=== PATIENT | female | born 1945 | race Caucasian/White ===

== ENCOUNTER 2022-09-15 11:03 | Day surgery (SDC) | payer OTHER, MEDICAID, SELFPAY ==
[2022-09-15] VITALS (16 sets, daily range): BP systolic 134–168; BP diastolic 65–93; PULSE 43–84; RESP 16–18; TEMP 36.4–36.9; O2SAT 93–99; BMI 23.4
--- NOTE | 2022-09-15 11:05 | IR_ITS ---
APPROVED REPORT Patient Location: Outpatient Machine Shop Instructor: MIRYAM Wesley RT (R) PROCEDURES Right heart catheterization Left heart catheterization Left ventriculogram Selective coronary angiogram Drug-eluting stent deployment to the ostial proximal left main artery Drug-eluting stent deployment to the ostial proximal dominant right coronary INDICATION High risk abnormal Myoview, Angina pectoris, Coronary artery disease, Cardiomyopathy, Pulmonary hypertension Informed consent was obtained prior to the procedure. COMPLICATIONS None Estimated Blood Loss: Less than 10 ML TECHNIQUE One percent lidocaine was used to anesthetize the right anterior aspect of the right wrist. The right radial artery was accessed via the Seldinger technique and a 6 Arabic hydrophilic sheath was placed in the right radial artery. Following this one percent lidocaine was used to anesthetize the right anterior aspect of the right neck. The right internal jugular vein was accessed via the Seldinger technique and a 7 Arabic sheath was placed in the right internal jugular vein. Following this an arterial cocktail was administered using 5000U heparin, 2.5 mg verapamil, 1mg Lidocaine and 800mcg nitroglycerin into the right radial sheath. A papa catheter was used to perform left heart catheterization left ventriculogram and selective coronary angiography while a [place]-Dasia catheter was used to perform right heart catheterization. Therapeutic heparin was administered at the end of the diagnostic cardiac procedure giving a therapeutic ACT. A Choice PT extra-support wire was placed distally in the circumflex artery and a 4 mm x 8 mm [place] frontier stent was deployed at 24 mey reducing the severe left main stenosis to 0%. An additional 5 mm x 8 mm noncompliant balloon was deployed at 20 mey in the ostial proximal segment of the left main artery stent further post dilating and reducing the stenosis. Excellent angiographic results were obtained with wide patency of the left main stent at the end of the procedure. Following this the guide catheter and apparatus was removed from the left coronary artery and placed into the right coronary artery followed by Choice PT extra-support wire. A 4 mm x 22 mm [place] frontier stent was deployed at 22 mey reducing the severe stenosis to 0%. VERONIQUE-3 flow was present down the left main artery and dominant right coronary before and after the procedure. At the end of the procedure the arterial sheath was removed good hemostasis was achieved using Traclet band. Patient was transferred to the postop holding area in stable condition for venous sheath removal. ANGIOGRAPHIC RESULTS The left main artery Is an ostial proximal 50% stenosis The left anterior descending artery Has proximal and mid vessel diffuse 20 to 30% stenosis. A small to moderate first diagonal artery has an ostial concentric 70 to 80% stenosis The circumflex artery Is a nondominant yet still large vessel and has proximal and mid vessel 30% stenoses The right coronary artery Is a large dominant vessel and has a proximal eccentric 80% stenosis The GUSMAN ventriculogram reveals Dilated ventricle ejection fraction 35 to 40% The left ventricular end-diastolic pressure 18 mmHg Right atrial pressure 14 mmHg Pulmonary artery pressure 42/22 mmHg Pulmonary occlusion pressure 18 mmHg Hemoglobin 15.6 Right atrial and pulmonary saturation 78% Aortic saturation 98% Cardiac output 5.2 Cardiac index 3.1 IMPRESSION Severe coronary disease as described above Successful stenting of the ostial proximal left main artery severe disease reduced to 0% with 1 drug-eluting stent Successful stenting of the proximal dominant right coronary severe disease due to 0% with 1 drug-eluting stent Cardiomyopathy as described above Moder
[2022-09-15 11:29] LABS: Basophils # 0.1 K/mm3 (0-0.2); Basophils % 0.7 % (0.1-2.0); Eosinophils # 0.1 K/mm3 (0.0-0.4); Eosinophils % 1.7 % (0.1-12.0); Hematocrit 48.4 % (37.0-47.0); Hemoglobin 15.6 g/dL (12.2-16.2); Lymphocytes # 2.2 K/mm3 (0.7-4.5); Lymphocytes % 33.4 % (10-50); Mean Corpuscular HGB Conc 32.2 g/dL (31.8-35.4); Mean Corpuscular Hemoglobin 29.7 pg (27.0-31.2); Mean Corpuscular Volume 92.4 fl (81-99); Mean Platelet Volume 9.2 fl (7.4-10.4); Monocytes # 0.3 K/mm3 (0.1-1.0); Monocytes % 4.9 % (1.7-9.3); Neutrophils # 3.9 K/mm3 (1.8-7.8); Neutrophils % 59.4 % (37.0-80.0); Platelet Count 217 K/mm3 (142-424); Red Blood Count 5.24 M/mm3 (4.20-5.40); Red Cell Distribution Width 13.3 % (11.5-17.5); White Blood Count 6.6 K/mm3 (4.8-10.8)
[2022-09-15 11:38] LABS: Anion Gap 14.4 mEq/L (5-15); Blood Urea Nitrogen 24 mg/dl (7-17); Carbon Dioxide 28 mmol/L (22.0-30.0); Chloride 103 mmol/L (98-107); Estimated Glomerular Filt Rate 61 ml/min (>60); GFR (African American) 74 ML/MIN (>60); Glucose 114 mg/dl (74-100); Potassium 4.4 mmoL/L (3.5-5.1); Sodium 141 mmol/L (136-145)
[2022-09-15 13:42] LABS: CATHL Arterial O2 SAT 78.7 % (90-100); CATHL Venous O2 SAT 78.6 % (75-80)
[2022-09-15 13:43] LABS: CATHL Activated Clotting Time 296 SEC (74-125)
--- NOTE | 2022-09-15 15:24 | PC.NURSE ---
accidentally charted on wrong pt
--- NOTE | 2022-09-15 15:50 | PC.NURSE ---
PT A&OX4, TOLERATING RA WELL. HAS BEEN RESTING IN BED SINCE ARRIVAL TO FLOOR. CHILDREN AT BEDSIDE. CATH SITES TO R NECK AND R WRIST. NO C/O THUS FAR. WILL GO OVER POST CATH D/C INSTRUCTIONS WITH PT AND FAMILY. VSS.
--- NOTE | 2022-09-16 13:13 | HMH.PHACL ---
PHA Underwater Photographer Discharge Med Public Relations Account Executive: Romy Blackwood DISCHARGED OVERNIGHT on the following medications: -ATORVASTATIN -ASPIRIN -CLOPIDOGREL -BISOPROLOL -LOSARTAN/HCTZ
== END 2022-09-15 20:05 | disposition home or self-care (01) ==
LOC: CATHLAB 13:39 → 2ND 14:00
PROVIDERS: Physician Assistant; PCP Nurse Practitioner Family; Visit Provider Internal Medicine
DX: I25.119 Atherosclerotic heart disease of native coronary artery with unspecified angina pectoris (principal); R42 Dizziness and giddiness; I48.91 Unspecified atrial fibrillation; I42.9 Cardiomyopathy, unspecified; I27.20 Pulmonary hypertension, unspecified
CPT/HCPCS: 36415; 80048; 82810; 85025; 85347; 92928; 93460; 93461; 99152; 99153; C1725; C1769; C1876; C1894; C9600; J1644; Q9967

== ENCOUNTER → 2022-12-15 09:10 | Outpatient (CLI) | payer OTHER, MEDICAID, SELFPAY ==
--- NOTE | 2022-12-15 09:13 | CA_ITS ---
APPROVED REPORT EXAM: Comprehensive 2D, Doppler, and color-flow Echocardiogram Fire Extinguisher Tester: Salud Palomo, RT(R) Ht: 5 ft 5 in Wt: 143lbs BSA: 1.72 BP: 147/79 mmHg Indications: Ordered as a limited for EF check, EF 35-40% on heart cath 09/15/22, dyspnea, CAD, AFIB, CM, PHTN. limited dopplers done to interrogate valves in light of no echo performed at this facility. 2D Dimensions LVEF (Townsend's) 37.70 % F: 54 - 74 LV Volume 99.40 mL F: 46 - 106 LV Volume Index 57.79 mL/m2 F: 29 - 61 LA Volume 78.60 mL LA Volume Index 45.70 mL/m2 (M/F) 16-34 M-Mode Dimensions RVDd 3.22 cm (0.9-2.6) LVDd 4.93 cm (3.5-5.7) LVDs 4.00 cm (3.5-5.7) IVSd 0.82 cm (0.6-1.1) PWd 0.79 cm (0.6-1.1) EF (Teich) 38.80% FS 18.90% EDV (Teich) 114.40 mL ESV (Teich) 70.00 mL LV Diastology E Decel Time 150.00 (160-240 msec) E/A Ratio 3.0 MED E' 5.90 (< 7 cm/sec) E'/MED E' Ratio 19.63 (>14) LAT E' 10.00 (<10 cm/sec) E/LAT E' Ratio 11.58 (>14) Mitral Valve MV E Max Live. 116.00 (40-130 cm/s) MV A Velocity 39.00 (40-130 cm/s) E/A Ratio 2.94 MV Decel. Time 150.00 (160-240 ms) MV PHT 44.00 ms Left Ventricle The left ventricle is normal size. Left ventricular systolic function is moderately decreased. There is increased LV wall thickness. There is severe hypokinesis of the inferior, inferoseptal, and inferolateral LV martinez. Grade 2 diastolic dysfunction is present. LVEF is 30-35%. Right Ventricle The right ventricle is normal size. Atria The left atrium is severely dilated. The right atrium is severely dilated. There is no Doppler evidence of interatrial shunt. Aortic Valve The aortic valve is mildly thickened. There is no aortic valvular stenosis. Trace aortic regurgitation. Mitral Valve Mild mitral annular calcification. The mitral valve leaflets appear mildly thickened and calcified. The posterior leaflet appears tethered with restricted motion. No evidence of mitral valve stenosis. Moderate mitral regurgitation. 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 Moderate to severe tricuspid regurgitation. RVSP is not evaluated in this study. Color Doppler demonstrates possible evidence of hepatic vein systolic flow reversal. Pulmonic Valve The pulmonic valve is not well visualized. Great Vessels The aortic root is normal in size. The ascending aorta is not well visualized. The IVC is normal size, but collapses < 50% with respirophasic variation. Pericardium There is no pericardial effusion. Other Information Study Quality: Fair Conclusion Moderate reduction in LV systolic function (LVEF 30-35%) Moderate MR (likely due to tethering of the posterior leaflet) Moderate to severe TR Due to moderate reduction of LVEF and mitral and tricuspid regurgitation, further evaluation for LV function and viability with cardiac MRI (cardiomyopathy protocol). Electronically signed by : Noemi Littlejohn MD 12/20/2022 09:11:03
== END ==
PROVIDERS: PCP Nurse Practitioner Family; Visit Provider Nurse Practitioner Family
DX: I27.20 Pulmonary hypertension, unspecified; E78.5 Hyperlipidemia, unspecified; R06.09 Other forms of dyspnea; R94.31 Abnormal electrocardiogram [ECG] [EKG]; I25.10 Atherosclerotic heart disease of native coronary artery without angina pectoris; I48.19 Other persistent atrial fibrillation; I42.8 Other cardiomyopathies
CPT/HCPCS: 93308

== ENCOUNTER 2023-04-18 09:11 | Outpatient (CLI) | payer OTHER, SELFPAY ==
[2023-04-18 09:50] LABS: Basophils # 0.1 K/mm3 (0-0.2); Basophils % 0.7 % (0.1-2.0); Eosinophils # 0.1 K/mm3 (0.0-0.4); Hematocrit 47.4 % (37.0-47.0); Hemoglobin 15.9 g/dL (12.2-16.2); Lymphocytes # 2.4 K/mm3 (0.7-4.5); Lymphocytes % 33.5 % (10-50); Mean Corpuscular HGB Conc 33.6 g/dL (31.8-35.4); Mean Corpuscular Hemoglobin 31.6 pg (27.0-31.2); Mean Corpuscular Volume 93.9 fl (81-99); Monocytes # 0.4 K/mm3 (0.1-1.0); Monocytes % 5.5 % (1.7-9.3); Neutrophils # 4.2 K/mm3 (1.8-7.8); Neutrophils % 59.3 % (37.0-80.0); Platelet Count 210 K/mm3 (142-424); Red Blood Count 5.04 M/mm3 (4.20-5.40); Red Cell Distribution Width 13.6 % (11.5-17.5); White Blood Count 7.1 K/mm3 (4.8-10.8)
[2023-04-18 10:37] LABS: Chloride 109 mmol/L (98-107); Potassium 4.5 mmoL/L (3.5-5.1); Sodium 140 mmol/L (136-145)
[2023-04-18 10:39] LABS: Alanine Aminotransferase 21 U/L (12-78); Alkaline Phosphatase 93 U/L (38-126); Anion Gap 8.5 mEq/L (5-15); Aspartate Amino Transferase 29 U/L (14-36); Bilirubin,Direct 0.2 mg/dl (0.0-0.4); Bilirubin,Indirect 0.6 mg/dL (0.0-0.9); Bilirubin,Total 0.8 mg/dl (0.2-1.3); Bilirubin,Unconjugated 0.7 mg/dL (0.0-1.1); Blood Urea Nitrogen 19 mg/dl (7-17); Carbon Dioxide 27 mmol/L (22.0-30.0); Estimated Glomerular Filt Rate 61 ml/min (>60); GFR (African American) 73 ML/MIN (>60)
[2023-04-18 10:40] LABS: Albumin Level 4.2 g/dl (3.5-5.0); Calcium 9.1 mg/dl (8.4-10.2); Chol/HDL Ratio 4.5 (1-3.5); Cholesterol 220 mg/dl (140-200); Glucose 110 mg/dl (74-100); HDL Cholesterol 49 mg/dl (40-60); Magnesium 1.8 mg/dl (1.6-2.3); Total Protein,Serum 6.7 g/dl (6.3-8.2); Triglycerides 157 mg/dl (30-150); VLDL Cholesterol 31 mg/dL (0-40)
[2023-04-18 10:51] LABS: Direct LDL Cholesterol 121.41 mg/dL (100-129)
[2023-04-18 10:56] LABS: Free T4 (Free Thyroxine) 1.25 ng/dl (0.78-2.19)
[2023-04-18 11:10] LABS: Thyroid Stimulating Hormone 2.82 uIU/mL (0.465-4.68)
== END 2023-04-18 23:59 ==
PROVIDERS: PCP Nurse Practitioner Family; Visit Provider Nurse Practitioner
DX: I25.10 Atherosclerotic heart disease of native coronary artery without angina pectoris (principal); I10 Essential (primary) hypertension; I27.20 Pulmonary hypertension, unspecified; I42.8 Other cardiomyopathies; I48.91 Unspecified atrial fibrillation; I50.20 Unspecified systolic (congestive) heart failure; R94.31 Abnormal electrocardiogram [ECG] [EKG]; E78.5 Hyperlipidemia, unspecified
CPT/HCPCS: 36415; 80048; 80061; 80076; 83735; 84439; 84443; 85025

== ENCOUNTER 2024-01-25 09:22 | Outpatient (CLI) | payer MEDICARE, MEDICAID, SELFPAY ==
[2024-01-25 10:17] LABS: Blood Urea Nitrogen 19 mg/dl (7-17); Estimated Glomerular Filt Rate 54 ml/min (>60); GFR (African American) 65 ML/MIN (>60)
== END 2024-01-25 23:59 | disposition home or self-care (01) ==
PROVIDERS: PCP Nurse Practitioner Family; Visit Provider Nurse Practitioner
DX: I42.9 Cardiomyopathy, unspecified (principal); I10 Essential (primary) hypertension
CPT/HCPCS: 36415; 82565; 84520

== ENCOUNTER 2024-02-29 10:53 | Outpatient (CLI) | payer MEDICARE, MEDICAID, SELFPAY ==
[2024-02-29 12:44] LABS: Chloride 107 mmol/L (98-107); Potassium 4.8 mmoL/L (3.5-5.1); Sodium 137 mmol/L (136-145)
[2024-02-29 12:47] LABS: Anion Gap 5.8 mEq/L (5-15); Blood Urea Nitrogen 27 mg/dl (7-17); Calcium 9.7 mg/dl (8.4-10.2); Carbon Dioxide 29 mmol/L (22.0-30.0); Estimated Glomerular Filt Rate 54 ml/min (>60); GFR (African American) 65 ML/MIN (>60); Glucose 95 mg/dl (74-100)
== END 2024-02-29 23:59 | disposition home or self-care (01) ==
LOC: LAB 10:54
PROVIDERS: PCP Nurse Practitioner Family; Visit Provider Nurse Practitioner
DX: I50.20 Unspecified systolic (congestive) heart failure (principal); I25.10 Atherosclerotic heart disease of native coronary artery without angina pectoris; I42.9 Cardiomyopathy, unspecified; I10 Essential (primary) hypertension; E78.2 Mixed hyperlipidemia
CPT/HCPCS: 36415; 80048

== ENCOUNTER 2024-03-06 11:18 | Outpatient (CLI) | payer MEDICARE, MEDICAID, SELFPAY ==
--- NOTE | 2024-03-06 11:22 | XR_ITS ---
FINAL REPORT CLINICAL HISTORY: cad soa FINDINGS: No acute pulmonary density is evident. There is no evidence of effusion or other pleural disease. The mediastinum has a normal appearance. There is moderate cardiomegaly. Given the rounded configuration of the enlarged heart, pericardial effusion is not excluded. IMPRESSION: Moderate cardiomegaly. No evidence of acute pulmonary disease. Reviewed, Interpreted and Dictated by Erica Cabezas MD Transcribed by Kenzie Meza Authenticated and [facility]
== END 2024-03-06 23:59 | disposition home or self-care (01) ==
LOC: RAD 11:20
PROVIDERS: PCP Nurse Practitioner Family; Visit Provider Internal Medicine
DX: I25.10 Atherosclerotic heart disease of native coronary artery without angina pectoris (principal)
CPT/HCPCS: 71046

== ENCOUNTER 2024-03-19 09:34 | Outpatient (CLI) | payer MEDICARE, MEDICAID, SELFPAY ==
--- NOTE | 2024-03-19 09:35 | MR_ITS ---
APPROVED REPORT Premises Technician: CLINICAL INDICATION HFrEF evaluation TECHNIQUE Image Acquisition: Cardiac magnetic resonance (CMR) was performed on Siemens Espree MRI 1.5T scanner. Software platform sequences were performed using the Siemens Grubster MR B19 platform. A set of three-plane, low-resolution, large [id number]-an-dovr localizers were initially acquired. Then axial, coronal, sagittal TrueFISP, as well as axial HASTE images, were obtained. These were followed by gated TrueFISP breathold cinematic sequences obtained in the short axis with 8 mm slices and 2 mm gaps, 2-chamber (vertical long axis), 3-chamber, 4-chamber (horizontal long axis). A bolus of contrast was injected intravenously with first-pass sequences obtained in the short axis and four-chamber planes. After approximately 10 minutes, a TI treasury assistant sequence was performed to determine the optimal TI time. Using the optimized TI time, delayed contrast enhancement segmented inversion???recovery TurboFLASH sequences were obtained in the short axis, 2-chamber, 3-chamber, and 4-chamber projections. 2D-velocity phase mapping was performed. Functional parameters were calculated by offline analysis on an independent workstation ([employer], [place]). Contrast: ProHance??? (Gadoteridol) FINDINGS MORPHOLOGY AND FUNCTION Left ventricle: The left ventricle is normal in size. The indexed left ventricular end-diastolic volume (LVEDVi) is 71 ml/m2 (reference range 57-105 ml/m2 in males, 56-96 ml/m2 in females). There is moderate reduction in left ventricular systolic function. Mild proximal septal thickening is noted. There is moderate global hypokinesis present. The septum is asynchronous. There are no regional wall motion abnormalities noted. LVEF is calculated at 31.8% (reference range 57-77%). Right ventricle: The right ventricle is mildly dilated. The indexed right ventricular end-diastolic volume (RVEDVi) is 91 ml/m2 (reference range 61-121 ml/m2 in males, 48-89 ml/m2 in females). There is moderate reduction in right ventricular systolic function. RVEF is calculated at 37.7% (reference range 52-72% in males, 51-71% in females). Atria: The left atrium is severely dilated. The maximum indexed left atrial volume is 110 ml/m2 (reference range 26-52 ml/m2 in males, 27-53 ml/m2 in females). The right atrium is severely dilated. The maximum indexed right atrial volume is 75 ml/m2 (reference range 18-45 ml/m2). Aorta: The diameter of the aortic annulus is normal, measuring 23 mm (coronal view reference range 21-30 mm in males, 19-27 mm in females). The diameter of the aortic sinus is normal, measuring 31 mm (coronal view reference range 25-42 mm in males, 24-36 mm in females). The diameter of the sinotubular junction is normal, measuring 23 mm (coronal view reference range 18-32 mm in males, 18-28 mm in females). The diameters of the ascending and descending thoracic aorta are normal. Main pulmonary artery: The main pulmonary artery diameter is normal. Pericardium: The pericardial thickness is normal. The pericardial thickness measures 1.5 mm (normal < 4.0 mm). There is no pericardial effusion. VALVES Mild aortic regurgitation is present. Mild mitral regurgitation is present. Ratio of pulmonary to systemic flow, Qp:Qs ratio = 1.38 (normal < or = 1.2, hemodynamically significant shunt > 1.5), demonstrating no evidence of hemodynamically significant shunt. TISSUE CHARACTERIZATION Resting Perfusion: Resting hypoperfusion is noted in the septal and inferoseptal LV martinez. Myocardial Fibrosis and/or edema: There is one small focus of mid myocardial late gadolinium enhancement is noted in the inferior LV wall. This finding is non-specific. Overall, no evidence of significant myocardial scarring, infarction, or necrosis. T2-weighted imaging demonstrates no evidence of myocardial edema or inflammation. OTHER Increased interstitial markings bilaterally. Correlation with recent chest imaging is suggested. IMPRESSION Normal LV size with moderate reduction in LV function. LVEDVi= 71 ml/m2 and LVEF= 31.8%. Asynchronous septum. Mild RV dilation with moderate reduction in RV function. RVEDVi= 91 ml/m2 and RVEF= 37.7%. Severe biatrial enlargement. Mild AI, mild MR. Presence of one small focus of mid myocardial late gadolinium enhancement is noted in the inferior LV wall. This finding is non-specific. Perfusion analysis demonstrates resting hypoperfusion of the septal and inferoseptal LV martinez. Ratio of pulmonary to systemic flow, Qp:Qs ratio = 1.38 (normal < or = 1.2, hemodynamically significant shunt > 1.5), demonstrating no evidence of hemodynamically significant shunt. Increased interstitial markings bilaterally. Correlation with recent chest imaging is suggested. 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 Resting perfusion analysis demonstrates possible hypoperfusion of the septal and inferoseptal LV martinez, suggestive of underlying ischemia but without evidence of myocardial infarct or scarring (viable myocardium). COMPARISON None CRITICAL RESULT None COMMUNICATION Per this written report The findings of this cardiac MR were reviewed, reported, and signed by Fernando Littlejohn MD (Swimming Teacher). Conclusion Electronically signed by : Noemi Littlejohn MD 03/21/2024 02:29:06
[2024-03-19] MEDS: SODIUM CHLORIDE 0.9% 10ML SYR (RAD ONLY) 10 ML IV (11:21)
[2024-03-19] MEDS: SODIUM CHLORIDE 0.9% 50ML BAG 25 ML IV (11:22)
[2024-03-19] MEDS: GADOTERIDOL INJ 20ML SYRINGE 15 ML IV (11:22)
== END 2024-03-19 23:59 | disposition home or self-care (01) ==
LOC: RAD 09:35
PROVIDERS: PCP Nurse Practitioner Family; Visit Provider Nurse Practitioner
DX: I25.118 Atherosclerotic heart disease of native coronary artery with other forms of angina pectoris (principal); I50.20 Unspecified systolic (congestive) heart failure
CPT/HCPCS: 75561; A9576

== ENCOUNTER 2024-04-05 07:47 | Day surgery (SDC) | payer MEDICARE, MEDICAID, SELFPAY ==
[2024-04-05] VITALS (11 sets, daily range): BP systolic 91–177; BP diastolic 53–100; PULSE 61–79; RESP 18–20; O2SAT 91–95; BMI 25.9
--- NOTE | 2024-04-05 07:08 | IR_ITS ---
APPROVED REPORT Patient Location: Outpatient PROCEDURES Left heart catheterization Left ventriculogram Selective coronary angiogram INDICATION Abnormal cardiac MRI, Systolic congestive heart failure ejection fraction 31% Informed consent was obtained prior to the procedure. COMPLICATIONS none Estimated Blood Loss: less than 10ml TECHNIQUE One percent lidocaine used to anesthetize the right anterior aspect of the wrist. The right radial artery was accessed via the Seldinger technique. A 6 Albanian sheath was placed in the right radial artery. 2.5 mg of Verapamil, 800 mcg of nitroglycerin, 1mg Lidocaine and 5000 U Heparin were given through the arterial sheath. The 6 Albanian JL 3 was also used to perform left heart catheterization, left ventriculogram and selective coronary angiogram. At the end of the procedure the sheath was removed good hemostasis was achieved using Traclet band, patient was transferred to the postop holding area in stable condition. ANGIOGRAPHIC RESULTS The left main artery Normal The left anterior descending artery Has proximal and mid vessel 10 to 20% mild calcified luminal regularities. A large sized first diagonal artery has an ostial 80% stenosis l The circumflex artery Codominant with mild 10% luminal regularities The right coronary artery Codominant with a stent in the ostial proximal segment which is widely patent free of in-stent restenosis. Distally there are 30% eccentric stenoses The GUSMAN ventriculogram reveals Hyperdynamic at 70% The left ventricular end-diastolic pressure 20 mmHg IMPRESSION Coronary disease as described above most notably with the severe stenosis in a large first diagonal artery which is still best managed medically given the large LAD is without flow-limiting plaque Hyperdynamic ventricle Mildly elevated LVEDP PLAN 1. Medical management Electronically signed by : Issac Cunningham MD 04/05/2024 11:52:19
[2024-04-05 08:53] LABS: Anion Gap 11.6 mEq/L (5-15); Blood Urea Nitrogen 19 mg/dl (7-17); Calcium 9.5 mg/dl (8.4-10.2); Carbon Dioxide 30 mmol/L (22.0-30.0); Chloride 102 mmol/L (98-107); Creatinine Clearance Estimated 43 mL/min (50-200); Estimated Glomerular Filt Rate 43 ml/min (>60); GFR (African American) 53 ML/MIN (>60); Glucose 116 mg/dl (74-100); Potassium 4.6 mmoL/L (3.5-5.1); Sodium 139 mmol/L (136-145)
[2024-04-05 09:12] LABS: Basophils # 0.1 K/mm3 (0-0.2); Basophils % 0.7 % (0.1-2.0); Eosinophils # 0.1 K/mm3 (0.0-0.4); Eosinophils % 1.2 % (0.1-12.0); Hematocrit 51.5 % (37.0-47.0); Lymphocytes # 2.3 K/mm3 (0.7-4.5); Mean Corpuscular Hemoglobin 30.7 pg (27.0-31.2); Mean Corpuscular Volume 93.1 fl (81-99); Mean Platelet Volume 11.1 fl (7.4-10.4); Monocytes # 0.6 K/mm3 (0.1-1.0); Monocytes % 7.5 % (1.7-9.3); Neutrophils # 4.6 K/mm3 (1.8-7.8); Neutrophils % 60.3 % (37.0-80.0); Platelet Count 272 K/mm3 (142-424); Red Blood Count 5.53 M/mm3 (4.20-5.40); Red Cell Distribution Width 13.4 % (11.5-17.5); White Blood Count 7.6 K/mm3 (4.8-10.8)
[2024-04-05] MEDS: diphenhydrAMINE 50MG/ML VIAL 50 MG IV (11:28)
[2024-04-05] MEDS: LIDOCAINE 1% 10ML MDV 20 ML IJ (11:28)
[2024-04-05] MEDS: NITROGLYCERIN 800MCG/8ML SYR (CATH LAB) 800 MCG IA (11:29)
[2024-04-05] MEDS: VERAPAMIL 2.5MG/ML 2ML VIAL 2.5 MG IV (11:29)
[2024-04-05] MEDS: 0.9 % SODIUM CHLORIDE 500 ML 25 ML IV (11:30)
[2024-04-05] MEDS: HEPARIN 1,000 UNITS/500ML NS (CATH LAB) 3000 UNIT IV (11:30)
[2024-04-05] MEDS: MIDAZOLAM HCL 1MG/ML 5ML VIAL 1 MG IV (11:37)
[2024-04-05] MEDS: FAMOTIDINE 20MG/2ML VIAL 20 MG IV (11:37)
[2024-04-05] MEDS: METHYLPREDNISOLONE SOD SUCC 125MG VIAL 125 MG IV (11:37)
[2024-04-05] MEDS: FENTANYL 100MCG/2ML VIAL 50 MCG IV (11:38)
[2024-04-05] MEDS: HEPARIN 1,000 UNITS/ML 10ML VIAL (CATH LAB) 10000 UNIT IV (11:50)
[2024-04-05] MEDS: IOPAMIDOL-370 (76%);100ML BOTTLE 70 ML IV (12:31)
== END 2024-04-05 14:49 | disposition home or self-care (01) ==
LOC: CATHLAB 07:48
PROVIDERS: PCP Nurse Practitioner Family; Visit Provider Internal Medicine
DX: I50.22 Chronic systolic (congestive) heart failure (principal); I25.10 Atherosclerotic heart disease of native coronary artery without angina pectoris; I27.20 Pulmonary hypertension, unspecified; I11.0 Hypertensive heart disease with heart failure; I48.20 Chronic atrial fibrillation, unspecified; R94.31 Abnormal electrocardiogram [ECG] [EKG]; R06.09 Other forms of dyspnea; R07.89 Other chest pain; Z79.899 Other long term (current) drug therapy; Z79.01 Long term (current) use of anticoagulants
CPT/HCPCS: 80048; 85025; 93458; 99152; C1725; C1769; J1200; J1644; J2250; J2919; J3010; Q9967; S0028

== ENCOUNTER 2024-05-25 12:00 | Outpatient (CLI) | payer MEDICARE, MEDICAID, SELFPAY ==
[2024-05-25 12:44] LABS: Basophils % 0.3 % (0.1-2.0); Eosinophils % 0.4 % (0.1-12.0); Hematocrit 48.3 % (37.0-47.0); Lymphocytes # 2.3 K/mm3 (0.7-4.5); Lymphocytes % 32.9 % (10-50); Mean Corpuscular HGB Conc 33.1 g/dL (31.8-35.4); Mean Corpuscular Hemoglobin 30.4 pg (27.0-31.2); Mean Corpuscular Volume 91.7 fl (81-99); Mean Platelet Volume 10.9 fl (7.4-10.4); Monocytes # 0.4 K/mm3 (0.1-1.0); Monocytes % 6.1 % (1.7-9.3); Neutrophils # 4.3 K/mm3 (1.8-7.8); Neutrophils % 60.2 % (37.0-80.0); Platelet Count 237 K/mm3 (142-424); Red Blood Count 5.27 M/mm3 (4.20-5.40); White Blood Count 7.1 K/mm3 (4.8-10.8)
[2024-05-25 13:11] LABS: Alanine Aminotransferase 22 U/L (12-78); Alkaline Phosphatase 91 U/L (38-126); Anion Gap 12.5 mEq/L (5-15); Aspartate Amino Transferase 32 U/L (14-36); Bilirubin,Direct 0.3 mg/dl (0.0-0.4); Bilirubin,Indirect 0.7 mg/dL (0.0-0.9); Bilirubin,Unconjugated 0.7 mg/dL (0.0-1.1); Blood Urea Nitrogen 29 mg/dl (7-17); Calcium 9.7 mg/dl (8.4-10.2); Carbon Dioxide 27 mmol/L (22.0-30.0); Chloride 105 mmol/L (98-107); Chol/HDL Ratio 3.8 (1-3.5); Cholesterol 259 mg/dl (140-200); Estimated Glomerular Filt Rate 54 ml/min (>60); GFR (African American) 65 ML/MIN (>60); Glucose 109 mg/dl (74-100); HDL Cholesterol 69 mg/dl (40-60); Magnesium 1.8 mg/dl (1.6-2.3); Potassium 4.5 mmoL/L (3.5-5.1); Sodium 140 mmol/L (136-145); Total Protein,Serum 7.7 g/dl (6.3-8.2); Triglycerides 125 mg/dl (30-150); VLDL Cholesterol 25 mg/dL (0-40)
[2024-05-25 13:21] LABS: Direct LDL Cholesterol 136.23 mg/dL (100-129)
[2024-05-25 13:26] LABS: Free T4 (Free Thyroxine) 1.19 ng/dl (0.78-2.19)
[2024-05-25 13:43] LABS: Thyroid Stimulating Hormone 1.83 uIU/mL (0.465-4.68)
== END 2024-05-25 23:59 | disposition home or self-care (01) ==
LOC: LAB 12:02
PROVIDERS: PCP Nurse Practitioner Family; Visit Provider Physician Assistant
DX: I50.20 Unspecified systolic (congestive) heart failure (principal); I25.10 Atherosclerotic heart disease of native coronary artery without angina pectoris; R94.31 Abnormal electrocardiogram [ECG] [EKG]; I48.91 Unspecified atrial fibrillation; I27.20 Pulmonary hypertension, unspecified; R06.09 Other forms of dyspnea; E78.2 Mixed hyperlipidemia; I10 Essential (primary) hypertension
CPT/HCPCS: 36415; 80048; 80061; 80076; 83735; 84439; 84443; 85025

== ENCOUNTER 2024-10-10 08:49 | Outpatient (CLI) | payer MEDICARE, MEDICAID, SELFPAY ==
--- NOTE | 2024-10-10 10:15 | CA_ITS ---
APPROVED REPORT EXAM: Comprehensive 2D, Doppler, and color-flow Echocardiogram Primary Clinician: Shannan Serna CRT Ht: 5 ft 5 in Wt: 144lbs BSA: 1.72 BP: 159/100 mmHg Indications: Atrial Fibrillation, Cardiomyopathy 2D Dimensions LA Volume 94.30 mL LA Volume Index 53.60 mL/m2 (M/F) 16-34 M-Mode Dimensions RVDd 3.25 cm (0.9-2.6) LA Diam 5.77 cm (1.9-4.0) LVDd 4.48 cm (3.5-5.7) LVDs 3.63 cm (3.5-5.7) IVSd 1.63 cm (0.6-1.1) PWd 0.77 cm (0.6-1.1) EF (Teich) 39.30% FS 19.00% EDV (Teich) 91.50 mL TAPSE 1.08 (<1.7) ESV (Teich) 55.50 mL LV Diastology E Decel Time 173 (160-240 msec) E/A Ratio 4.39 MED A' 2.80 cm/s LAT A' 3.60 cm/s Aortic Valve LEROY Index 1.27 cm2/m2 AoV Peak Live. 155.0 (50-130 cm/s) AO Peak GR. 9.60 mmHg AO Mean GR. 5.80 (<5 mmHg) AO VTI 27.4 (18-25 cm) LEROY (VTI) 2.23 (2.5-4.5 cm2) Mitral Valve MV E Max Live. 98.0 (40-130 cm/s) MV A Velocity 22.0 (40-130 cm/s) E/A Ratio 4.39 MV PHT 51.0 ms Pulmonary Valve PV Peak Velocity 148.0 (50-150 cm/s) Tricuspid Valve TR P. Velocity 273.00 cm/s RAP Estimate 10.00 mmHg RVSP 39.90 mmHg Left Ventricle The left ventricle is normal size. The left ventricular systolic function is low normal. There is increased LV wall thickness. Proximal septal thickening is present. There is mild hypokinesis of the LV apical wall, as well as the inferior and inferolateral LV martinez. Diastolic function is indeterminate. LVEF is 50-55%. Right Ventricle The right ventricle is normal size. The right ventricular systolic function is normal. Atria Left atrium is severely dilated. Right atrium is severely dilated. There is no Doppler evidence of interatrial shunt. Aortic Valve Aortic valve is mildly thickened. There is no aortic valvular stenosis. Trace aortic regurgitation. Mitral Valve The mitral valve leaflets are mildly thickened. No evidence of mitral valve stenosis. Moderate mitral regurgitation. Tricuspid Valve Tricuspid valve is grossly normal in structure and function. Moderate tricuspid regurgitation. RVSP is 30-35 mmHg. Pulmonic Valve The pulmonary valve is normal in structure. Trace pulmonic regurgitation. Great Vessels The aortic root is normal in size. IVC is normal in size and collapses >50% with inspiration. Pericardium There is no pericardial effusion. Other Information Study Quality: Fair Conclusion Low normal LV systolic function (LVEF 50-55%). Mild hypokinesis of the LV apical wall, as well as the inferior and inferolateral LV martinez. Severe biatrial dilation. Moderate TR, moderate MR. RVSP 30-35 mmHg. Electronically signed by : Noemi Littlejohn MD 10/10/2024 20:18:49
== END 2024-10-10 23:59 | disposition home or self-care (01) ==
LOC: RT 08:49
PROVIDERS: PCP Nurse Practitioner Family; Visit Provider Physician Assistant
DX: I08.1 Rheumatic disorders of both mitral and tricuspid valves (principal); I11.0 Hypertensive heart disease with heart failure; I50.20 Unspecified systolic (congestive) heart failure; I25.118 Atherosclerotic heart disease of native coronary artery with other forms of angina pectoris; R94.31 Abnormal electrocardiogram [ECG] [EKG]; I48.91 Unspecified atrial fibrillation; I42.9 Cardiomyopathy, unspecified; I27.20 Pulmonary hypertension, unspecified; E78.5 Hyperlipidemia, unspecified; R93.1 Abnormal findings on diagnostic imaging of heart and coronary circulation
CPT/HCPCS: 93306